=== PATIENT | female | born 2000 | race Two or more races ===

== ENCOUNTER 2021-10-08 22:22 | Outpatient (CLI) | payer OTHER | END 2021-10-09 12:38 | disposition home or self-care (01) | LOC: OBS/DEL 22:22 | PROVIDERS: ATTEND Specialist | DX: O26.892 Other specified pregnancy related conditions, second trimester (principal); Z3A.24 24 weeks gestation of pregnancy ==

== ENCOUNTER 2022-01-06 12:46 | Outpatient (CLI) | payer OTHER | END 2022-01-06 17:22 | disposition home or self-care (01) | LOC: OBS/DEL 12:46 | PROVIDERS: ATTEND Specialist | DX: O47.03 False labor before 37 completed weeks of gestation, third trimester (principal); Z3A.36 36 weeks gestation of pregnancy ==

== ENCOUNTER 2022-01-17 07:14 | Inpatient (IN) | payer OTHER ==
[~2022-01-17] VITALS: Ht 157.5 cm; Wt 3.6 kg
[2022-01-17] MEDS ORDERED: ASPIRIN81 MG PO (07:58)
[2022-01-17] MEDS ORDERED: PRENATAL TABLE1 EAC5 PO (07:58)
[2022-01-17] MEDS ORDERED: IRON325 MG PO (07:59)
== END 2022-01-20 19:19 | disposition home or self-care (01) | DRG 788 ==
LOC: LDR 07:14 → OB/GYN 16:03
PROVIDERS: ADMIT Specialist; ATTEND Specialist
PROC: 4A1HXCZ Monitoring of Products of Conception, Cardiac Rate, External Approach (ICD-10-PCS; 2022-01-17)
PROC: 10D00Z1 Extraction of Products of Conception, Low, Open Approach (ICD-10-PCS; principal; 2022-01-17 13:00)
DX: O62.1 Secondary uterine inertia (principal); Z3A.38 38 weeks gestation of pregnancy; Z37.0 Single live birth; Z20.822 Contact with and (suspected) exposure to COVID-19

== ENCOUNTER 2025-06-19 19:45 | Emergency (ER) | payer OTHER ==
[~2025-06-19] VITALS: Ht 157.5 cm; Wt 86.2 kg
[~2025-06-19 19:45] MED LIST: ASPIRIN81 MG PO; IRON325 MG PO; PRENATAL TABLE1 EAC5 PO
[2025-06-19] MEDS ORDERED: 0.9 % SODIUM CHLORIDE 1,000 ML IV STA (21:10)
[2025-06-19] MEDS ORDERED: ONDANSETRON HCL 2 MG/ML VIAL IV STA (21:10)
[2025-06-19] MEDS ORDERED: FAMOTIDINE/PF 20 MG/2 ML VIAL IV STA (21:10)
[2025-06-19] MEDS ORDERED: ONDANSETRON HCL 2 MG/ML VIAL ONE (21:18)
[2025-06-19] MEDS ORDERED: FAMOTIDINE/PF 20 MG/2 ML VIAL ONE (21:19)
[2025-06-19 21:50] LABS: BASO % 0.1 % (0.1-1.2); EOS # 0.01 (0.04-0.54); EOS % 0.1 % (0.7-7.0); LYMPH # 1.08 (1.18-3.74); LYMPH % 12.2 % (19.3-53.1); MEAN PLATELET VOLUME 10.80 fl (9.4-12.4); MONO # 0.45 (0.24-0.82); MONO % 5.1 % (4.7-12.5); NEUT # 7.27 (1.56-6.13); NEUT % 82.2 % (34.0-71.1); RED CELL DISTRIBUTION WIDTH 13.6 % (11.6-14.4)
[2025-06-19 22:04] LABS: ERYTHROCYTE SEDIMENTATION RATE 31 mm/hr (0-20)
[2025-06-19 22:07] LABS: COVID-19 AG NEGATIVE (NEGATIVE)
[2025-06-19 22:14] LABS: INR 1.06
[2025-06-19 22:23] LABS: ALT/SGPT 21.0 U/L (12-78); AST/SGOT 14.0 U/L (15-37); BILIRUBIN TOTAL 0.92 mg/dL (0.3-1.2); BUN CREA RATIO 12.0 (7.0-25.0); CREATININE SERUM 0.85 mg/dL (0.55-1.02); GFR 80.84; GLOBULINA 3.7 G/DL (2.4-3.5); GLUCOSE FASTING 84.0 mg/dL (65-100); OSMOLALITY SERUM 274.0 MOSM/KG (275-295)
[2025-06-19] MEDS ORDERED: METHYLPREDNISOLONE SOD SUCC 125 MG VIAL IV STA (23:01)
[2025-06-19 23:08] LABS: URINE APPEARANCE Cloudy; URINE BILIRRUBIN Moderate (NEGATIVE); URINE BLOOD Trace; URINE COLOR Dark Yellow; URINE GLUCOSE Negative (NEGATIVE); URINE LEUKOCYTE Negative; URINE NITRATE Negative; URINE PROTEIN 30 (NEGATIVE); URINE UROBILINOGEN 1.0 E.U./dl
[2025-06-19 23:13] LABS: URINE CAST 2.26 uL (0.0-1.40); URINE EPITHELIAL CELLS 137.8 uL (0.0-38.8); URINE RBC 34.9 uL (0.0-20.8); URINE WBC 69.7 uL (0.0-23.2)
[2025-06-19] MEDS ORDERED: ALBUTEROL SULFATE 3 ML/2.5 MG AMPUL.NEB IH SCH (23:15)
[2025-06-19] MEDS ORDERED: CEFTRIAXONE SODIUM 1,000 MG VIAL IV ONE (23:15)
[2025-06-19 23:44] LABS: URINE KETONE 80 (NEGATIVE)
[2025-06-19 23:45] LABS: TYPE CELLS SQUAMOUS; URINE MUCUS SCANT
[2025-06-19] MEDS ORDERED: ALBUTEROL2.5 MG/3 M IH (23:49)
[2025-06-19] MEDS ORDERED: PEPCID AC20 MG PO (23:49)
[2025-06-19] MEDS ORDERED: BUDESONIDE0.5 MG/2 M IH (23:49)
[2025-06-19] MEDS ORDERED: INTESTINEX680 M2 PO (23:49)
[2025-06-19] MEDS ORDERED: ZITHROMAX500 MG PO (23:49)
[2025-06-19] MEDS ORDERED: MEDROLPACK PO (23:49)
[2025-06-19] MEDS ORDERED: ZYRTEC10 MG PO (23:49)
[2025-06-19] MEDS ORDERED: CIPRO500 MG PO (23:52)
[2025-06-20] MEDS ORDERED: ALBUTEROL SULFATE 3 ML/2.5 MG AMPUL.NEB IH ONE (00:23)
[2025-06-20] MEDS ORDERED: METHYLPREDNISOLONE SOD SUCC 125 MG VIAL ONE (01:34)
[2025-06-20] MEDS ORDERED: CEFTRIAXONE SODIUM 1,000 MG VIAL ONE (01:34)
[2025-06-20] MEDS ORDERED: WATER FOR INJ.,BACTERIOSTATIC 30 ML VIAL IJ ONE (01:38)
== END 2025-06-20 01:57 | disposition home or self-care (01) ==
LOC: ER 19:46
PROVIDERS: Physician Assistant Medical
DX: J06.9 Acute upper respiratory infection, unspecified (principal); R50.9 Fever, unspecified; A08.8 Other specified intestinal infections; R11.2 Nausea with vomiting, unspecified; Z20.822 Contact with and (suspected) exposure to COVID-19